=== PATIENT | female | born 1995 | race African-American/Black ===

== ENCOUNTER 2016-07-30 07:42 | Inpatient (IN) | payer OTHER ==
[~2016-07-30] VITALS: Ht 172.7 cm; Wt 93.0 kg
[2016-07-30] MEDS ORDERED: Oxytocin 10 Unit/mL Inj IM PRN ×2 (07:55→11:50)
[2016-07-30] MEDS ORDERED: Lactated Ringer's 1,000 ML IV PRN (07:55)
[2016-07-30] MEDS ORDERED: Oxytocin 30 Units/500 mL LR 30 UNITS in IV Premix 1 EACH IV PRN ×2 (07:55→11:50)
[2016-07-30] MEDS ORDERED: Hemorrhage Kit, Post Partum XX ONE ×2 (07:55→11:50)
[2016-07-30] MEDS ORDERED: Sodium Chloride LOK Flush 10 mL Syringe IVFLUSH PRN (07:55)
[2016-07-30] MEDS ORDERED: Methylergonovine 0.2 mg/mL Inj IM PRN ×2 (07:55→11:50)
[2016-07-30] MEDS ORDERED: Carboprost 250 mCg/mL Inj IM PRN ×2 (07:55→11:50)
[2016-07-30 08:23] LABS: Mean Corpuscular Hemoglobin 30.1 pg (27.0-35.0); Mean Corpuscular Volume 89.9 fL (81-100)
[2016-07-30] MEDS ORDERED: fentaNYL 2 mCg/mL-Bupivicaine 0.125% 100 mL Premix EPIDURAL ONE (08:29)
--- NOTE | 2016-07-30 09:00 | NUR ---
received SW referral, advised HOTEL HOUSEKEEPER.
--- NOTE | 2016-07-30 09:30 | HP ---
[address] [address] HISTORY AND PHYSICAL PATIENT: ANTONY BOYCE : 1995 MR#: [id number] ADMIT: 07/30/2016 JOB ID: [id number] CHIEF COMPLAINT: Contractions. HISTORY OF PRESENT ILLNESS: This is a 20-year-old obstetrical patient of Dr. Lora for whom I am stock controller. She presents complaining of increasing frequency and pain of contractions over the last four or five days and increasing in intensity starting at 02:00. She also noted clear fluid discharge at 07:00. She presents to labor and delivery in active labor and she is 8 cm and completely effaced with gross rupture of membranes caryn every 2 minutes or so and was admitted for expectant management. PAST OBSTETRICAL HISTORY: Is reported by the patient to be unremarkable. Her labs show her blood type is O negative. She is negative to HIV, hepatitis B, hepatitis C, negative to antibody screen. RPR is nonreactive. Rubella is immune. GC/chlamydia were negative. Pap smear was unremarkable except for coccobacillus. Hematocrit was 39.1. MSAFP test was negative at about 18 weeks. Diabetic screen at 28 weeks was negative and GBS status is also negative. 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 She has been in a local drug rehab program having completed it in November of 2015. The patient reports she has not used any illegal drugs since that time. PAST MEDICAL HISTORY: Is otherwise unremarkable. SURGICAL HISTORY: Is also entirely negative. 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 The patient smokes cigarettes. Denies ETOH use and uses no other drugs. MEDICATIONS: Currently takes vitamins. Otherwise, is on no regular medications. ALLERGIES: Has no known drug allergies. REVIEW OF SYSTEMS: Denies any recent illness. No swelling in her feet. No headache. Just contractions with increasing frequency. OBJECTIVE: Well-developed, well-nourished woman, who is in a great deal of distress secondary to her contraction pain. Vital signs show blood pressure of 135/75, pulse is 83, respiratory rate is 20. Temperature is afebrile. Lungs clear to auscultation bilaterally with good air movement. Heart is regular rate and rhythm. No significant murmurs heard. Abdomen is gravid, otherwise benign. Extremities showed no significant edema and normal deep tendon reflexes. Caryn every 2 minutes. Cervical examination was 8 cm and completely effaced and baby is vertex with gross ROM (clear). PLAN: The patient was admitted for expectant management. She is interested in getting an epidural. This has been ordered and is currently being placed. Otherwise we will proceed with routine expectant management. Will also obtain a urine drug screen. Also routine labs have been obtained and are unremarkable. Discussed routine potential Obsterical complications and the treatment options. Answered the patients questions and she is will to proceed. LOGAN
--- NOTE | 2016-07-30 10:18 | NUR ---
Social Work Note: Referral received MARINE PILOT spoke with fishing vessel operator who explained that Pt is currently in labor and it was determined that Pt should be seen by SW once delivered. Margarita Collins, PEPE, AAC
[2016-07-30] MEDS ORDERED: Lactated Ringer's 1,000 ML IV SCH (11:49)
[2016-07-30] MEDS ORDERED: LANOlin HPA 7 Gm Ointment TOPICAL PRN (11:50)
[2016-07-30] MEDS ORDERED: Witch Hazel-Glycerin Pads TOPICAL PRN (11:50)
[2016-07-30] MEDS ORDERED: oxyCODONE-Acetamin 5-325 mg Tablet PO PRN (11:50)
[2016-07-30] MEDS ORDERED: Benzocaine (Dermoplast) 20% 60 Gm Spray TOPICAL PRN (11:50)
--- NOTE | 2016-07-30 13:43 | OP ---
[address] [address] OPERATIVE REPORT PATIENT: ANTONY BOYCE : 1995 MR#: [id number] ADMIT: 07/30/2016 JOB ID: [id number] DATE OF SURGERY: 07/30/2016 SURGEON: Vishal Gavin M.D. PREOPERATIVE DIAGNOSIS(ES): POSTOPERATIVE DIAGNOSIS(ES): DELIVERY NOTE: The patient had a spontaneous vaginal delivery as described below. Please see my admission H and P for her admitting circumstances. Her labor proceeded quickly. She did get an epidural with excellent relief from her contraction pain. The baby's heartbeat remained reactive and reassuring and she continued to have contractions every few minutes. She was found to be completely dilated at 10:28 and started pushing. I was called to attend the delivery and she was actively pushing at the time, having contractions about every 2 minutes with excellent epidural anesthesia for her uterine pain but had a great deal of perineal discomfort with pushing. Eventually delivered the baby's head. There was no nuchal cord noted. There was a right hand noted at the baby's neck when the baby came out. The baby's head was occiput anterior position. The baby's delivery was completed at 11 o'clock even. The baby was then placed on mom's abdomen. Approximately 60 seconds was waited and then the cord was clamped and cut. The placenta delivered spontaneously and intact at 11:03. Inspection of the cervix revealed no obvious cervical lacerations. There was a posterior perineal second-degree laceration that was repaired with 3-0 Vicryl in the usual manner without difficulty. Her perineum was very tender and so 8 mL of 2% lidocaine was used for local anesthesia prior to the sutures being placed. There were no other significant lacerations noted. Hemostasis was obtained. ESTIMATED BLOOD LOSS: 250 cc. COMPLICATIONS: None. The patient seems to be doing well. We will provide routine care and management. This baby was a baby boy with Apgars of 9 and 9, and weight was 6 pounds 9 ounces at 2974 g and was 20 inches long.
--- NOTE | 2016-07-30 14:00 | PCM.HPANE ---
Patient Data Surgeon Admitting Provider:Rea Lora MD Attending Provider:Rea Lora MD Primary Care Physician:Rea Lora MD Other Provider:Vanessa Solano Anesthesia Reason for Visit Active Labor ACTIVE LABOR Ht/WT & BMI Body Mass Index Allergies Uncoded Allergies: PEANUTS (Adverse Reaction, Unknown, 07/30/16) Diabetes History Hx Diabetes?: No Medications Hypertension Medication: No History Hx of Heart Problems?: No Hx of Respiratory Problem?: No Hx Neurologic Problems?: No Hx of GI Problems?: No Hx Surgeries?: No Hx Substance Use: Yes Smoking Status: Current Every Day Smoker Unknown if Ever Smoker Stop/Bang Treated for Sleep Apnea?: No Do You Have a CPAP Machine?: No ABIGAIL Risk Assessment: Low Risk, <3 Yes Risk Assessment Category Category 1A: Patient has history of documented sleep apnea, and HAS NOT received any narcotic, sedative or anesthesia administration during this stay. Category 1B: Patient has history of documented sleep apnea, and HAS received any narcotic , sedative or anesthesia administration during this stay Category 2: Patient has SUSPECTED Obstructive Sleep Apnea, and HAS received any narcotic , sedative or anesthesia administration during this stay. Category 3: Patient has SUSPECTED Obstructive Sleep Apnea and HAS NOT received narcotic, sedative or anesthesia administration during this stay. Category 4: Outpatient in Procedural Areas with known sleep apnea or who screen positive for High Risk via the STOP/BANG questionnaire. Exam Exam General Appearance: Alert, Oriented X3, Cooperative, No Acute Distress HEENT/AIRWAY: MP 3 Lungs: Clear to Auscultation, Normal Air Movement Heart: Exam Unremarkable, Regular Rate/Rhythm, No Murmurs/Rubs/Gallops Additional Information Gravid Abdomen Meds/Labs/Diagnostics Labs Test 07/30/16 08:05 07/30/16 09:15 White Blood Count 12.2th/mm3 (3.8-10.1) Red Blood Count 3.96mil/mm3 (3.90-5.20) Hemoglobin 11.9g/dL (12.0-15.6) Hematocrit 35.6% (35.0-46.0) Mean Corpuscular Volume 89.9fL (81-100) Mean Corpuscular Hemoglobin 30.1pg (27.0-35.0) Mean Corpuscular Hemoglobin Concent 33.4% (32.0-37.0) Red Cell Distribution Width 13.5% (12.3-15.4) Platelet Count 200bil/L (150-400) Urine Opiates Screen Negative Urine Methadone Screen Negative Urine Barbiturates Screen Negative Urine Amphetamines Screen Negative Urine Benzodiazepines Screen Negative Urine Cocaine Metabolite Screen Negative Urine Cannabinoids Screen Negative Plan Impression Patient chart reviewed, patient interviewed and anesthestic plan with risks, benefits, and alternatives discussed, and informed consent obtained. ASA Physical Status: ASA2 Mod Systemic Disease Anesthetic Plan: Epidural Bene/Risks/Altern/Consents: Yes HP Complete Prior to Induction: Yes (Urgent nature of Patient demand precluded preliminary documentation as deffered to chart review and proritization of maternal analgesia) Josh Faulkner DO Jul 30, 2016 14:00
--- NOTE | 2016-07-30 14:01 | PCM.ANEP1 ---
Post Anesthesia Phase 1 PACU Phase 1 Assessment Anesthetic Administered: Epidural Level of Alertness: Awake, talking CHÁVEZ's with Equal Strength: Yes Pain: No Pain Scale Score: 2 Nausea or Vomiting: No Lungs: Clear to Auscultation, Normal Air Movement Dermatome Level: Full Sensation Josh Faulkner DO Jul 30, 2016 14:01
--- NOTE | 2016-07-30 14:01 | PCM.ANEP2 ---
Post Anesthesia Evaluation ASA/CMS Post Anesthesia VS in Patient's Normal Range?: Yes Resp Stable; Airway Patent?: Yes CV Function & Hydration Stable: Yes Mental Status Recovered?: Yes Pain control Satisfactory?: Yes N/V Control Satisfactory?: Yes Josh Faulkner DO Jul 30, 2016 14:01
--- NOTE | 2016-07-30 16:16 | NUR ---
Social Work Note: Initial Assessment D/A: Pt is a 20 year old female who gave to BB on 07/30/2016. Pt reported that she lives with her adoptive mother in [place] and is planning to return to this home at discharge. Pt indicated tht she has everything that she will need to safely care for BB at home, including a bassinet and a car seat. Pt explained that she has supportive family and friends who will be available to assist in caring for BB if needed. Pt reported that FOB is Alec Jimenez and explained that he is not currently in the picture. Pt did not know where FOMilvia lives. Pt indicated that she is enrolled in WIC and [employer]. Pt denied a history of DV or mental illness. Pt reported a history of polysubstance use. Pt indicated that she has been clean and sober since 12/10/2015 and her UDS was negative at the time of delivery today. Pt reported no current legal issues and no additional needs prior to discharge. P: Pt has a supportive group of friends and family. Pt has a safe and stable home to discharge to. Pt is enrolled in appropriate social work faculty member. Pt reported that she has not used drugs since November of 2015 and her UDS was negative today. manager staffing reported that Pt and family have been appropriate and affectionate with BB while in the hospital. manager staffing reported no additional concerns. COTTON BROKER conferred with [facility] manager staffing and it was determined that no CPS referral would be needed at this time. Pt to be discharged once medically cleared by [facility] . PEPE Brewer, AAC
[2016-07-30] MEDS: Ascorbic Acid 500 mg Tablet PO SCH (17:58)
[2016-07-31 06:16] LABS: Mean Corpuscular Hemoglobin 29.8 pg (27.0-35.0); Mean Corpuscular Volume 91.9 fL (81-100)
[2016-07-31] MEDS: Ascorbic Acid 500 mg Tablet PO SCH (08:00)
--- NOTE | 2016-07-31 17:55 | PCM.DIOB ---
Obstetrical Disch Instruction Date of Service: Jul 31, 2016 Dates of Hospitalization Date of Hospital Admission Jul 30, 2016 at 07:54 Providers Admitting Physician: Rea Lora MD Primary Care Physician: Rea Lora MD Attending Physician: Rea Lora MD Discharge Diagnosis Problems: (1) Normal spontaneous vaginal delivery Status: Resolved ICD Code: O80 Diet Discharge Diet: No restrictions Activity Discharge Activity-General: Pelvic Rest for 6 weeks, Try not to overdue, Be up and about, Balance rest and activity Dressing and Incisional Care Hygiene: May shower Follow Up Plan Follow Up Plan f/u with Dr. Lora in 6 weeks and as needed. Follow-up Provider (F9): Rea Lora MD Follow-up appointment: Weeks (six) Call your provider for: Fever or Chills, Shortness of breath, Heavy vaginal bleeding, Heavy bleeding, Epigastric pain, Excessive constipation, Vaginal discomfort, Red painful breasts Additional Information Patient is doing very well and is requesting no pain medications upon discharge. Told to f/u with Dr. Lora in 6 weeks and as needed. Vishal Gavin MD Jul 31, 2016 17:55
[2016-07-31 18:16] VITALS: BP 122/73; PULSE 73; RESP 16
--- NOTE | 2016-08-01 04:50 | DIS ---
[address] [address] DISCHARGE SUMMARY PATIENT: ANTONY BOYCE : 1995 MR#: [id number] ADMIT: 07/30/2016 JOB ID: [id number] DIS: 07/31/2016 DATE OF ADMISSION: 07/30/2016 DATE OF DISCHARGE: 07/31/2016 DISCHARGE DIAGNOSIS: Spontaneous vaginal delivery at term. HISTORY AND PHYSICAL: Please see my admission H and P for details. CONSULTATIONS: None. PROCEDURES: The patient had a spontaneous vaginal delivery on July 30 without difficulty. Please see the delivery note for full details. HOSPITAL COURSE: The patient came in active labor and pretty far along at 8 cm and proceeded pretty quickly to completely dilated. She did get an epidural with very good results. She had her baby vaginally without significant problems. See my delivery note for full details. course has been entirely uneventful and patient has virtually no complaints at the present time. Specifically reports decreasing lochia. No significant perineal discomfort and no breast discomfort. DISCHARGE EXAMINATION: Shows her vital signs to be normal and stable. Lungs are clear to auscultation bilaterally with good air movement. Heart is regular rate and rhythm. No significant murmurs heard. Abdomen is benign with a uterus that is firm and below the umbilicus. Extremities showed no significant edema and normal deep tendon reflexes. ASSESSMENT AND PLAN: Term , now resolved with spontaneous vaginal delivery. The patient doing very well and will be discharged today home with routine instructions. The patient requested no pain medications and so no prescriptions were provided for her. She was told that she can take ibuprofen as needed. FOLLOWUP: Told to follow up with Dr. Lora in six weeks, otherwise as needed.
== END 2016-07-31 18:42 | disposition home or self-care (01) | DRG 775 ==
LOC: FBCO 07:42 → FBC 07:54
PROVIDERS: ADMIT Family Medicine; ATTEND Family Medicine
PROC: 10E0XZZ Delivery of Products of Conception, External Approach (ICD-10-PCS; principal; 2016-07-30)
PROC: 0KQM0ZZ Repair Perineum Muscle, Open Approach (ICD-10-PCS; 2016-07-30)
DX: O70.1 Second degree perineal laceration during delivery (principal); Z37.0 Single live birth; F17.210 Nicotine dependence, cigarettes, uncomplicated; O99.333 Smoking (tobacco) complicating pregnancy, third trimester; Z3A.37 37 weeks gestation of pregnancy